=== PATIENT | male | born 1940 | race Caucasian/White ===

== ENCOUNTER 2024-01-22 10:56 | Emergency (ER) | payer MEDICARE | END 2024-01-22 14:00 | disposition home or self-care (01) | LOC: FB.ED 10:56 | DX: S01.01XA Laceration without foreign body of scalp, initial encounter (principal); I10 Essential (primary) hypertension; W01.0XXA Fall on same level from slipping, tripping and stumbling without subsequent striking against object, initial encounter | CPT/HCPCS: 12001; 70450; 99284 ==

== ENCOUNTER 2024-02-07 11:48 | Inpatient (IN) | payer MEDICARE, OTHER ==
[2024-02-07] MEDS ORDERED: Carbamide Peroxide 6.5% Otic Soln 15 ML Bottle EARBOTH PRN (12:30)
[2024-02-07] MEDS ORDERED: Loperamide 2 MG Cap PO PRN (12:30)
[2024-02-07] MEDS ORDERED: Bisacodyl 10 MG Supp RECTAL PRN (12:30)
[2024-02-07] MEDS ORDERED: Magnesium Hydroxide 400 MG/5 ML Susp 30 ML Cup PO PRN (12:30)
[2024-02-07] MEDS ORDERED: guaiFENesin 100 MG/5 ML Soln 5 ML UD Cup PO PRN (12:30)
[2024-02-07] MEDS ORDERED: Aluminum Hydroxide/Magnesium Hydroxide Susp 30 ML Cup PO PRN (12:58)
[2024-02-07] MEDS: Carbidopa/Levodopa 25-100 MG Tab PO SCH (13:37)
[2024-02-07] MEDS: Acetaminophen 325 MG Tab PO SCH (13:37)
[2024-02-07] MEDS: Enoxaparin 40 MG/0.4 ML Syringe SUBCUT SCH (13:42)
[2024-02-07] MEDS: traMADol 50 MG Tab PO PRN (18:41)
[2024-02-07] MEDS: Fluticasone NASAL Spray 16 GM Bottle NASBOTH SCH (21:28)
[2024-02-07] MEDS: Polyethylene Glycol 3350 Powder 17 GM Packet PO SCH (21:29)
[2024-02-07] MEDS: Mirtazapine 15 MG Tab PO SCH (21:30)
[2024-02-07] MEDS: LIDOCAINE PATCH TRDERM SCH (21:32)
[2024-02-07] MEDS: Sennosides/Docusate Sodium 50-8.6 MG Tab PO SCH (21:36)
[2024-02-08 06:44] LABS: BASOPHILS PERCENT AUTO 0.2 % (0.3-3.8); EOSINOPHILS PERCENT AUTO 0.3 % (0.1-6.8); HEMATOCRIT 35.1 % (38.3-50.1); HEMOGLOBIN 11.5 g/dL (12.9-17.7); LYMPHOCYTES ABSOLUTE AUTO 2.5 x10-3/uL (0.5-4.5); LYMPHOCYTES PERCENT AUTO 27.6 % (15.8-45.3); MEAN CORPUSCULAR HEMOGLOBIN 31.4 pg (27.0-33.3); MEAN CORPUSCULAR HGB CONC 32.7 g/dL (28.7-35.3); MEAN CORPUSCULAR VOLUME 95.9 fL (80.8-98.7); MONOCYTES ABSOLUTE AUTO 1.1 x10-3/uL (0.0-1.2); MONOCYTES PERCENT AUTO 11.9 % (5.5-15.2); NEUTROPHILS ABSOLUTE AUTO 5.4 x10-3/uL (1.7-6.9); PLATELET COUNT,PLT 195 x10(3)uL (117-477); RED BLOOD CELL COUNT 3.66 x10(6)uL (3.90-5.90)
[2024-02-08 06:55] LABS: A/G RATIO 0.8; ALANINE AMINOTRANSFERASE,ALT 9 U/L (12-36); ALBUMIN 3.1 g/dL (3.2-4.6); ALKALINE PHOSPHATASE 92 IU/L (56-112); ASPARTATE AMNIOTRANSFERASE,AST 13 IU/L (5-25); BILIRUBIN TOTAL 0.4 mg/dL (0.1-1.3); BLOOD UREA NITROGEN,BUN 35 mg/dL (7-18); BUN/CREATININE RATIO 19.4 (9-20); CALCIUM 8.6 mg/dL (8.6-10.2); CARBON DIOXIDE,CO2 28 mmol/L (21-32); CHLORIDE,CL 110 mmol/L (100-110); CREATININE 1.8 mg/dL (0.70-1.30); EST CRCL DRUG DOSING (CG) 31.46 mL/min; ESTIMATED GFR 37 mL/min (>60); GLUCOSE RANDOM 99 mg/dL (80-116); POTASSIUM,K 5.6 mmol/L (3.5-5.3); PROTEIN TOTAL,TP 6.9 g/dL (6.0-8.0); SODIUM,NA 144 mmol/L (135-145)
[2024-02-08] MEDS: Aspirin 81 MG Tab.EC PO SCH (08:10)
[2024-02-08] MEDS: Rosuvastatin 20 MG Tab PO SCH (08:10)
[2024-02-08] MEDS: Folic Acid/Vitamin B Complex With C Cap PO SCH (08:10)
[2024-02-08] MEDS: Tamsulosin 0.4 MG Cap.ER PO SCH (08:10)
[2024-02-08] MEDS: Enoxaparin 40 MG/0.4 ML Syringe SUBCUT SCH (08:11)
[2024-02-08] MEDS: Metoprolol Succinate 25 MG Tab.ER PO SCH (08:12)
[2024-02-08] MEDS: Lidocaine 4% 1 each Patch TOP SCH (08:14)
[2024-02-08] MEDS ORDERED: Lisinopril 2.5 MG Tab PO SCH (09:00)
[2024-02-08] MEDS: Sodium Zirconium Cyclosilicate 10 GM Packet PO ONE (10:15)
[2024-02-09 06:21] LABS: BASOPHILS PERCENT AUTO 0.3 % (0.3-3.8); EOSINOPHILS PERCENT AUTO 0.4 % (0.1-6.8); HEMATOCRIT 35.2 % (38.3-50.1); HEMOGLOBIN 11.4 g/dL (12.9-17.7); LYMPHOCYTES ABSOLUTE AUTO 2.2 x10-3/uL (0.5-4.5); LYMPHOCYTES PERCENT AUTO 23.8 % (15.8-45.3); MEAN CORPUSCULAR HGB CONC 32.4 g/dL (28.7-35.3); MEAN CORPUSCULAR VOLUME 95.7 fL (80.8-98.7); MEAN PLATELET VOLUME 8.6 fL (6.7-11.0); MONOCYTES ABSOLUTE AUTO 1.1 x10-3/uL (0.0-1.2); MONOCYTES PERCENT AUTO 11.9 % (5.5-15.2); NEUTROPHILS ABSOLUTE AUTO 5.9 x10-3/uL (1.7-6.9); NEUTROPHILS PERCENT AUTO 63.6 % (40.3-71.8); PLATELET COUNT,PLT 188 x10(3)uL (117-477); RED BLOOD CELL COUNT 3.67 x10(6)uL (3.90-5.90); RED CELL DISTRIBUTION WIDTH 14.8 % (12.4-15.0); WHITE BLOOD CELL COUNT,WBC 9.2 x10-3/uL (3.2-10.1)
[2024-02-09 06:29] LABS: BLOOD UREA NITROGEN,BUN 37 mg/dL (7-18); BUN/CREATININE RATIO 21.8 (9-20); CALCIUM 8.6 mg/dL (8.6-10.2); CARBON DIOXIDE,CO2 26 mmol/L (21-32); CHLORIDE,CL 109 mmol/L (100-110); CREATININE 1.7 mg/dL (0.70-1.30); EST CRCL DRUG DOSING (CG) 33.17 mL/min; ESTIMATED GFR 40 mL/min (>60); GLUCOSE RANDOM 102 mg/dL (80-116); POTASSIUM,K 5.4 mmol/L (3.5-5.3); SODIUM,NA 142 mmol/L (135-145)
[2024-02-09] MEDS: Sodium Zirconium Cyclosilicate 10 GM Packet PO ONE (09:29)
[2024-02-09] MEDS: Naproxen 500 MG Tab PO SCH (09:29)
[2024-02-09] MEDS: Iopamidol 755 Mg/ML 100 ML Bottle IV SCH (13:58)
[2024-02-10] MEDS: Acetaminophen 325 MG Tab PO PRN (02:21)
[2024-02-10 07:03] LABS: BLOOD UREA NITROGEN,BUN 38 mg/dL (7-18); BUN/CREATININE RATIO 23.8 (9-20); CALCIUM 8.8 mg/dL (8.6-10.2); CARBON DIOXIDE,CO2 25 mmol/L (21-32); CHLORIDE,CL 108 mmol/L (100-110); CREATININE 1.6 mg/dL (0.70-1.30); ESTIMATED GFR 43 mL/min (>60); GLUCOSE RANDOM 109 mg/dL (80-116); POTASSIUM,K 4.8 mmol/L (3.5-5.3); SODIUM,NA 141 mmol/L (135-145)
[2024-02-10] MEDS: Folic Acid/Vit B Complix And C 1 Tablet PO SCH (08:33)
[2024-02-10] MEDS: Haloperidol Lactate 5 MG/ML SDV IM PRN (14:17)
[2024-02-10] MEDS: OLANZapine 10 MG Vial IM ONE (16:49)
== END 2024-02-11 09:10 | DRG 534 ==
LOC: FB.MS 12:00
PROVIDERS: ADMIT Family Medicine; ATTEND Family Medicine
DX: S72.302A Unspecified fracture of shaft of left femur, initial encounter for closed fracture (principal); M97.02XA Periprosthetic fracture around internal prosthetic left hip joint, initial encounter; F05 Delirium due to known physiological condition; F33.1 Major depressive disorder, recurrent, moderate; I13.0 Hypertensive heart and chronic kidney disease with heart failure and stage 1 through stage 4 chronic kidney disease, or unspecified chronic kidney disease; I50.42 Chronic combined systolic (congestive) and diastolic (congestive) heart failure; N18.31 Chronic kidney disease, stage 3a; E87.5 Hyperkalemia; G20.A2 Parkinson's disease without dyskinesia, with fluctuations; D63.1 Anemia in chronic kidney disease; N28.89 Other specified disorders of kidney and ureter; S32.591G Other specified fracture of right pubis, subsequent encounter for fracture with delayed healing; N40.0 Benign prostatic hyperplasia without lower urinary tract symptoms; H54.7 Unspecified visual loss; I25.10 Atherosclerotic heart disease of native coronary artery without angina pectoris; E78.5 Hyperlipidemia, unspecified; N40.1 Benign prostatic hyperplasia with lower urinary tract symptoms; G31.84 Mild cognitive impairment of uncertain or unknown etiology; R29.6 Repeated falls; W01.0XXA Fall on same level from slipping, tripping and stumbling without subsequent striking against object, initial encounter; Z88.0 Allergy status to penicillin; Z88.1 Allergy status to other antibiotic agents; Z91.018 Allergy to other foods; Z79.82 Long term (current) use of aspirin; Z79.899 Other long term (current) drug therapy; I25.2 Old myocardial infarction; Z87.891 Personal history of nicotine dependence
CPT/HCPCS: 36415; 74178; 80048; 80053; 83880; 85025; 93005; 93010; 97161-GP; 99222; 99232; 99233; 99239; A9270-GY; J1630; J1650; Q9967; U0002

== ENCOUNTER 2024-11-29 08:25 | Emergency (ER) | payer MEDICARE, MEDICAID ==
[2024-11-29] MEDS ORDERED: Sodium Chloride 0.9% 10 ML Syringe FLUSH PRN (08:45)
[2024-11-29 09:17] LABS: BASOPHILS PERCENT AUTO 0.4 % (0.3-3.8); EOSINOPHILS PERCENT AUTO 0.2 % (0.1-6.8); HEMATOCRIT 36.2 % (38.3-50.1); HEMOGLOBIN 12.3 g/dL (12.9-17.7); LYMPHOCYTES ABSOLUTE AUTO 0.7 x10-3/uL (0.5-4.5); MEAN CORPUSCULAR HEMOGLOBIN 31.6 pg (27.0-33.3); MEAN CORPUSCULAR HGB CONC 33.9 g/dL (28.7-35.3); MEAN CORPUSCULAR VOLUME 93.1 fL (80.8-98.7); MEAN PLATELET VOLUME 9.2 fL (6.7-11.0); MONOCYTES ABSOLUTE AUTO 0.9 x10-3/uL (0.0-1.2); MONOCYTES PERCENT AUTO 9.2 % (5.5-15.2); NEUTROPHILS ABSOLUTE AUTO 8.1 x10-3/uL (1.7-6.9); NEUTROPHILS PERCENT AUTO 83.2 % (40.3-71.8); PLATELET COUNT,PLT 178 x10(3)uL (117-477); RED BLOOD CELL COUNT 3.89 x10(6)uL (3.90-5.90); WHITE BLOOD CELL COUNT,WBC 9.7 x10-3/uL (3.2-10.1)
[2024-11-29 09:29] LABS: BASE EXCESS VENOUS,POC -5 mmol/L (-2 - 3+); PCO2 VENOUS,POC 32 mmHg (41-51); PH VENOUS,POC 7.39 pH Units (7.32-7.43)
[2024-11-29 09:32] LABS: A/G RATIO 0.9; ALANINE AMINOTRANSFERASE,ALT 9 U/L (12-36); ALBUMIN 3.4 g/dL (3.2-4.6); ALKALINE PHOSPHATASE 69 IU/L (56-112); ASPARTATE AMNIOTRANSFERASE,AST 20 IU/L (5-25); BILIRUBIN TOTAL 0.8 mg/dL (0.1-1.3); BLOOD UREA NITROGEN,BUN 51 mg/dL (7-18); BUN/CREATININE RATIO 20.4 (9-20); CALCIUM 8.6 mg/dL (8.6-10.2); CARBON DIOXIDE,CO2 23 mmol/L (21-32); CHLORIDE,CL 107 mmol/L (100-110); ESTIMATED GFR 25 mL/min (>60); GLUCOSE RANDOM 134 mg/dL (80-116); POTASSIUM,K 4.6 mmol/L (3.5-5.3); PROTEIN TOTAL,TP 7.3 g/dL (6.0-8.0); SODIUM,NA 141 mmol/L (135-145)
[2024-11-29 09:36] LABS: LACTIC ACID 0.9 mmol/L (0.4-2.0)
[2024-11-29 09:37] LABS: CREATININE 2.5 mg/dL (0.70-1.30)
[2024-11-29 09:56] LABS: TROPONIN I 62.6 pg/mL (4.0-60.3)
[2024-11-29 10:53] LABS: PROTHROMBIN TIME 10.4 sec (9.0-11.1)
[2024-11-29 11:20] LABS: D-DIMER QUANTITATIVE 1.97 mg/LFEU (0.0-0.59)
[2024-11-29 12:20] LABS: APPEARANCE,URINE CLEAR (CLEAR); BILIRUBIN,URINE NEGATIVE (NEGATIVE); COLOR,URINE YELLOW (YELLOW); GLUCOSE,URINE NORMAL (NORMAL); KETONES,URINE NEGATIVE (NEGATIVE); LEUKOCYTE ESTERASE,URINE NEGATIVE (NEGATIVE); NITRITE,URINE NEGATIVE (NEGATIVE); OCCULT BLOOD,URINE NEGATIVE (NEGATIVE); PROTEIN,URINE NEGATIVE (NEGATIVE); UROBILINOGEN,URINE NORMAL (NEGATIVE)
[2024-11-29] MEDS ORDERED: Sodium Chloride 0.9% 1,000 ML IV SCH (13:15)
[2024-11-29] MEDS ORDERED: Sodium Chloride 0.9% 500 ML IV SCH (13:48)
== END 2024-11-29 14:10 ==
LOC: FB.ED 08:25
DX: J06.9 Acute upper respiratory infection, unspecified (principal); N17.9 Acute kidney failure, unspecified; E86.0 Dehydration; I12.9 Hypertensive chronic kidney disease with stage 1 through stage 4 chronic kidney disease, or unspecified chronic kidney disease; I25.10 Atherosclerotic heart disease of native coronary artery without angina pectoris; N18.9 Chronic kidney disease, unspecified; Z88.0 Allergy status to penicillin; Z88.8 Allergy status to other drugs, medicaments and biological substances; Z88.1 Allergy status to other antibiotic agents; Z79.82 Long term (current) use of aspirin; Z79.899 Other long term (current) drug therapy; Z79.51 Long term (current) use of inhaled steroids
CPT/HCPCS: 36415; 71045; 80053; 81003; 83605; 83880; 84484; 85025; 85379; 85610; 85730; 87040; 93005; 99285

== ENCOUNTER 2025-05-31 12:46 | Emergency (ER) | payer MEDICARE, MEDICAID ==
[2025-05-31 13:23] LABS: BASOPHILS ABSOLUTE AUTO 0.0 x10-3/uL (0.0-0.3); BASOPHILS PERCENT AUTO 0.5 % (0.3-3.8); EOSINOPHILS ABSOLUTE AUTO 0.0 x10-3/uL (0.0-0.6); EOSINOPHILS PERCENT AUTO 0.2 % (0.1-6.8); LYMPHOCYTES ABSOLUTE AUTO 1.1 x10-3/uL (0.5-4.5); LYMPHOCYTES PERCENT AUTO 12.2 % (15.8-45.3); MEAN PLATELET VOLUME 8.9 fL (6.7-11.0); MONOCYTES ABSOLUTE AUTO 1.4 x10-3/uL (0.0-1.2); MONOCYTES PERCENT AUTO 14.6 % (5.5-15.2); NEUTROPHILS ABSOLUTE AUTO 6.8 x10-3/uL (1.7-6.9); NEUTROPHILS PERCENT AUTO 72.5 % (40.3-71.8); PLATELET COUNT,PLT 167 x10(3)uL (117-477); RED BLOOD CELL COUNT 4.47 x10(6)uL (3.90-5.90); RED CELL DISTRIBUTION WIDTH 13.8 % (12.4-15.0); WHITE BLOOD CELL COUNT,WBC 9.3 x10-3/uL (3.2-10.1)
[2025-05-31 13:25] LABS: BLOOD UREA NITROGEN,BUN 34 mg/dL (7-18); CARBON DIOXIDE,CO2 24 mmol/L (21-32); CHLORIDE,CL 107 mmol/L (100-110); CREATININE 1.8 mg/dL (0.70-1.30); ESTIMATED GFR 37 mL/min (>60); GLUCOSE RANDOM 127 mg/dL (80-116); POTASSIUM,K 4.6 mmol/L (3.5-5.3); SODIUM,NA 141 mmol/L (135-145)
== END 2025-05-31 15:31 | disposition home or self-care (01) ==
LOC: FB.ED 12:46
DX: R50.83 Postvaccination fever (principal); I13.0 Hypertensive heart and chronic kidney disease with heart failure and stage 1 through stage 4 chronic kidney disease, or unspecified chronic kidney disease; I50.9 Heart failure, unspecified; N18.9 Chronic kidney disease, unspecified; I25.10 Atherosclerotic heart disease of native coronary artery without angina pectoris; E78.00 Pure hypercholesterolemia, unspecified; Z88.0 Allergy status to penicillin; Z88.8 Allergy status to other drugs, medicaments and biological substances; Z91.018 Allergy to other foods; Z79.82 Long term (current) use of aspirin; Z79.899 Other long term (current) drug therapy
CPT/HCPCS: 36415; 80048; 85025; 99284; A9270; 99283

== ENCOUNTER 2025-06-10 12:23 | Inpatient (IN) | payer MEDICARE, MEDICAID ==
[2025-06-10 13:58] LABS: MEAN PLATELET VOLUME 9.0 fL (6.7-11.0); PLATELET COUNT,PLT 197 x10(3)uL (117-477); RED BLOOD CELL COUNT 4.12 x10(6)uL (3.90-5.90); RED CELL DISTRIBUTION WIDTH 13.9 % (12.4-15.0); WHITE BLOOD CELL COUNT,WBC 16.2 x10-3/uL (3.2-10.1)
[2025-06-10 14:02] LABS: A/G RATIO 0.8; ALANINE AMINOTRANSFERASE,ALT 7 U/L (12-36); ASPARTATE AMNIOTRANSFERASE,AST 15 IU/L (5-25); BILIRUBIN TOTAL 0.8 mg/dL (0.1-1.3); BLOOD UREA NITROGEN,BUN 34 mg/dL (7-18); CARBON DIOXIDE,CO2 23 mmol/L (21-32); CHLORIDE,CL 110 mmol/L (100-110); CREATININE 1.9 mg/dL (0.70-1.30); EST CRCL DRUG DOSING (CG) 26.58 mL/min; ESTIMATED GFR 35 mL/min (>60); GLUCOSE RANDOM 147 mg/dL (80-116); POTASSIUM,K 4.3 mmol/L (3.5-5.3); PROTEIN TOTAL,TP 7.8 g/dL (6.0-8.0); SODIUM,NA 145 mmol/L (135-145)
[2025-06-10 14:14] LABS: PRO B-TYPE NATRIUR PEPT,BNPPRO 1628.0 pg/mL (<=450)
[2025-06-10 14:21] LABS: LYMPHOCYTES PERCENT MAN 6 % (13-37); MONOCYTES PERCENT MAN 8 % (4-12); SEG NEUTROPHILS PERCENT MAN 86 % (46-82)
[2025-06-10 14:47] LABS: INFLUENZA A NAA NEGATIVE (NEGATIVE); INFLUENZA B NAA NEGATIVE (NEGATIVE); RESPIRATORY SYNCYTIAL VIR NAA NEGATIVE (NEGATIVE)
[2025-06-10 14:48] LABS: CORONAVIRUS COVID-19 NAA NEGATIVE (NEGATIVE)
[2025-06-10] MEDS: Levofloxacin/Dextrose 5%-Water 750 MG in Premix Bag 1 BAG IV SCH (15:07)
[2025-06-10] MEDS ORDERED: Ondansetron 4 MG Tab.DIS PO PRN (16:51)
[2025-06-10] MEDS: Fluticasone NASAL Spray 16 GM Bottle NASBOTH SCH (21:00)
[2025-06-10] MEDS: Sennosides/Docusate Sodium 50-8.6 MG Tab PO SCH (21:01)
[2025-06-10] MEDS: methylPREDNISolone Sodium Succinate 40 MG/1 ML SDV IVPUSH ONE (22:42)
[2025-06-10 22:56] LABS: BASE EXCESS VENOUS,POC -4 mmol/L (-2 - 3+); PCO2 VENOUS,POC 36 mmHg (41-51); PH VENOUS,POC 7.37 pH Units (7.32-7.43)
[2025-06-11] MEDS: Albuterol 0.083% 2.5 MG/3 ML Neb Soln NEB SCH (06:01)
[2025-06-11 06:52] LABS: MEAN PLATELET VOLUME 8.9 fL (6.7-11.0); PLATELET COUNT,PLT 181 x10(3)uL (117-477); RED BLOOD CELL COUNT 3.73 x10(6)uL (3.90-5.90); RED CELL DISTRIBUTION WIDTH 14.4 % (12.4-15.0); WHITE BLOOD CELL COUNT,WBC 12.5 x10-3/uL (3.2-10.1)
[2025-06-11 07:01] LABS: A/G RATIO 0.7; ALANINE AMINOTRANSFERASE,ALT 7 U/L (12-36); ASPARTATE AMNIOTRANSFERASE,AST 16 IU/L (5-25); BILIRUBIN TOTAL 0.6 mg/dL (0.1-1.3); BLOOD UREA NITROGEN,BUN 30 mg/dL (7-18); CARBON DIOXIDE,CO2 20 mmol/L (21-32); CHLORIDE,CL 113 mmol/L (100-110); CREATININE 1.9 mg/dL (0.70-1.30); EST CRCL DRUG DOSING (CG) 26.58 mL/min; ESTIMATED GFR 35 mL/min (>60); GLUCOSE RANDOM 175 mg/dL (80-116); POTASSIUM,K 4.4 mmol/L (3.5-5.3); PROTEIN TOTAL,TP 7.0 g/dL (6.0-8.0); SODIUM,NA 145 mmol/L (135-145)
[2025-06-11 07:07] LABS: LYMPHOCYTES PERCENT MAN 8 % (13-37); MONOCYTES PERCENT MAN 2 % (4-12); SEG NEUTROPHILS PERCENT MAN 90 % (46-82)
[2025-06-11] MEDS: guaiFENesin 100 MG/5 ML Soln 5 ML UD Cup PO PRN (23:59)
[2025-06-12 06:24] LABS: BASOPHILS ABSOLUTE AUTO 0.0 x10-3/uL (0.0-0.3); BASOPHILS PERCENT AUTO 0.1 % (0.3-3.8); EOSINOPHILS ABSOLUTE AUTO 0.0 x10-3/uL (0.0-0.6); EOSINOPHILS PERCENT AUTO 0.1 % (0.1-6.8); LYMPHOCYTES ABSOLUTE AUTO 1.6 x10-3/uL (0.5-4.5); LYMPHOCYTES PERCENT AUTO 11.8 % (15.8-45.3); MEAN PLATELET VOLUME 8.5 fL (6.7-11.0); MONOCYTES ABSOLUTE AUTO 1.4 x10-3/uL (0.0-1.2); MONOCYTES PERCENT AUTO 10.4 % (5.5-15.2); NEUTROPHILS ABSOLUTE AUTO 10.2 x10-3/uL (1.7-6.9); NEUTROPHILS PERCENT AUTO 77.6 % (40.3-71.8); PLATELET COUNT,PLT 174 x10(3)uL (117-477); RED BLOOD CELL COUNT 3.53 x10(6)uL (3.90-5.90); RED CELL DISTRIBUTION WIDTH 14.2 % (12.4-15.0); WHITE BLOOD CELL COUNT,WBC 13.2 x10-3/uL (3.2-10.1)
[2025-06-12 06:40] LABS: A/G RATIO 0.7; ALANINE AMINOTRANSFERASE,ALT 13 U/L (12-36); ASPARTATE AMNIOTRANSFERASE,AST 22 IU/L (5-25); BILIRUBIN TOTAL 0.4 mg/dL (0.1-1.3); BLOOD UREA NITROGEN,BUN 39 mg/dL (7-18); CARBON DIOXIDE,CO2 21 mmol/L (21-32); CREATININE 1.8 mg/dL (0.70-1.30); EST CRCL DRUG DOSING (CG) 28.06 mL/min; ESTIMATED GFR 37 mL/min (>60); GLUCOSE RANDOM 119 mg/dL (80-116); POTASSIUM,K 4.2 mmol/L (3.5-5.3); PROTEIN TOTAL,TP 6.4 g/dL (6.0-8.0); SODIUM,NA 148 mmol/L (135-145)
[2025-06-12 06:55] LABS: CHLORIDE,CL 117 mmol/L (100-110)
[2025-06-13 06:41] LABS: BASOPHILS ABSOLUTE AUTO 0.1 x10-3/uL (0.0-0.3); BASOPHILS PERCENT AUTO 0.5 % (0.3-3.8); EOSINOPHILS ABSOLUTE AUTO 0.1 x10-3/uL (0.0-0.6); EOSINOPHILS PERCENT AUTO 0.7 % (0.1-6.8); LYMPHOCYTES ABSOLUTE AUTO 1.8 x10-3/uL (0.5-4.5); LYMPHOCYTES PERCENT AUTO 17.5 % (15.8-45.3); MEAN PLATELET VOLUME 9.1 fL (6.7-11.0); MONOCYTES ABSOLUTE AUTO 1.2 x10-3/uL (0.0-1.2); MONOCYTES PERCENT AUTO 12.1 % (5.5-15.2); NEUTROPHILS ABSOLUTE AUTO 7.0 x10-3/uL (1.7-6.9); NEUTROPHILS PERCENT AUTO 69.2 % (40.3-71.8); PLATELET COUNT,PLT 180 x10(3)uL (117-477); RED BLOOD CELL COUNT 3.64 x10(6)uL (3.90-5.90); RED CELL DISTRIBUTION WIDTH 14.2 % (12.4-15.0); WHITE BLOOD CELL COUNT,WBC 10.1 x10-3/uL (3.2-10.1)
[2025-06-13 07:13] LABS: A/G RATIO 0.7; ALANINE AMINOTRANSFERASE,ALT 12 U/L (12-36); ASPARTATE AMNIOTRANSFERASE,AST 20 IU/L (5-25); BILIRUBIN TOTAL 0.6 mg/dL (0.1-1.3); BLOOD UREA NITROGEN,BUN 32 mg/dL (7-18); CARBON DIOXIDE,CO2 20 mmol/L (21-32); CHLORIDE,CL 112 mmol/L (100-110); CREATININE 1.5 mg/dL (0.70-1.30); EST CRCL DRUG DOSING (CG) 33.67 mL/min; ESTIMATED GFR 46 mL/min (>60); GLUCOSE RANDOM 117 mg/dL (80-116); POTASSIUM,K 3.9 mmol/L (3.5-5.3); PROTEIN TOTAL,TP 6.9 g/dL (6.0-8.0); SODIUM,NA 144 mmol/L (135-145)
[2025-06-14 06:27] LABS: BASOPHILS ABSOLUTE AUTO 0.0 x10-3/uL (0.0-0.3); BASOPHILS PERCENT AUTO 0.5 % (0.3-3.8); EOSINOPHILS ABSOLUTE AUTO 0.1 x10-3/uL (0.0-0.6); EOSINOPHILS PERCENT AUTO 0.9 % (0.1-6.8); LYMPHOCYTES ABSOLUTE AUTO 1.8 x10-3/uL (0.5-4.5); LYMPHOCYTES PERCENT AUTO 18.3 % (15.8-45.3); MEAN PLATELET VOLUME 9.2 fL (6.7-11.0); MONOCYTES ABSOLUTE AUTO 1.2 x10-3/uL (0.0-1.2); MONOCYTES PERCENT AUTO 12.5 % (5.5-15.2); NEUTROPHILS ABSOLUTE AUTO 6.6 x10-3/uL (1.7-6.9); NEUTROPHILS PERCENT AUTO 67.8 % (40.3-71.8); PLATELET COUNT,PLT 193 x10(3)uL (117-477); RED BLOOD CELL COUNT 3.84 x10(6)uL (3.90-5.90); RED CELL DISTRIBUTION WIDTH 14.3 % (12.4-15.0); WHITE BLOOD CELL COUNT,WBC 9.8 x10-3/uL (3.2-10.1)
[2025-06-14 06:37] LABS: A/G RATIO 0.7; ALANINE AMINOTRANSFERASE,ALT 7 U/L (12-36); ASPARTATE AMNIOTRANSFERASE,AST 17 IU/L (5-25); BILIRUBIN TOTAL 0.7 mg/dL (0.1-1.3); BLOOD UREA NITROGEN,BUN 28 mg/dL (7-18); CARBON DIOXIDE,CO2 21 mmol/L (21-32); CHLORIDE,CL 111 mmol/L (100-110); CREATININE 1.5 mg/dL (0.70-1.30); EST CRCL DRUG DOSING (CG) 33.67 mL/min; ESTIMATED GFR 46 mL/min (>60); GLUCOSE RANDOM 111 mg/dL (80-116); POTASSIUM,K 4.2 mmol/L (3.5-5.3); PROTEIN TOTAL,TP 7.2 g/dL (6.0-8.0); SODIUM,NA 145 mmol/L (135-145)
[2025-06-14] MEDS: Saccharomyces Boulardii (Probiotic) 250 MG Cap PO SCH (10:53)
[2025-06-14] MEDS: VANCOmycin 1.75 GM/350 ML 1.75 GM in Premix Bag 1 BAG IV ONE (11:12)
[2025-06-14 21:50] LABS: BASOPHILS ABSOLUTE AUTO 0.1 x10-3/uL (0.0-0.3); BASOPHILS PERCENT AUTO 0.6 % (0.3-3.8); EOSINOPHILS ABSOLUTE AUTO 0.1 x10-3/uL (0.0-0.6); EOSINOPHILS PERCENT AUTO 1.2 % (0.1-6.8); LYMPHOCYTES ABSOLUTE AUTO 2.1 x10-3/uL (0.5-4.5); LYMPHOCYTES PERCENT AUTO 19.6 % (15.8-45.3); MEAN PLATELET VOLUME 9.1 fL (6.7-11.0); MONOCYTES ABSOLUTE AUTO 1.4 x10-3/uL (0.0-1.2); MONOCYTES PERCENT AUTO 13.3 % (5.5-15.2); NEUTROPHILS ABSOLUTE AUTO 7.0 x10-3/uL (1.7-6.9); NEUTROPHILS PERCENT AUTO 65.3 % (40.3-71.8); PLATELET COUNT,PLT 205 x10(3)uL (117-477); RED BLOOD CELL COUNT 4.03 x10(6)uL (3.90-5.90); RED CELL DISTRIBUTION WIDTH 14.3 % (12.4-15.0); WHITE BLOOD CELL COUNT,WBC 10.7 x10-3/uL (3.2-10.1)
[2025-06-14 21:57] LABS: BLOOD UREA NITROGEN,BUN 34 mg/dL (7-18); CARBON DIOXIDE,CO2 22 mmol/L (21-32); CHLORIDE,CL 112 mmol/L (100-110); CREATININE 1.7 mg/dL (0.70-1.30); EST CRCL DRUG DOSING (CG) 29.71 mL/min; ESTIMATED GFR 40 mL/min (>60); GLUCOSE RANDOM 115 mg/dL (80-116); POTASSIUM,K 3.8 mmol/L (3.5-5.3); SODIUM,NA 146 mmol/L (135-145)
[2025-06-14 22:03] LABS: A/G RATIO 0.6; ASPARTATE AMNIOTRANSFERASE,AST 17 IU/L (5-25); BILIRUBIN TOTAL 0.4 mg/dL (0.1-1.3); PROTEIN TOTAL,TP 7.4 g/dL (6.0-8.0)
[2025-06-14 22:08] LABS: ALANINE AMINOTRANSFERASE,ALT < 6 U/L (12-36)
[2025-06-14 22:19] LABS: BASE EXCESS VENOUS,POC -4 mmol/L (-2 - 3+); PCO2 VENOUS,POC 35 mmHg (41-51); PH VENOUS,POC 7.37 pH Units (7.32-7.43)
[2025-06-15] MEDS: Sodium Chloride 0.9% 10 ML Syringe FLUSH PRN (02:18)
[2025-06-15 07:09] LABS: MEAN PLATELET VOLUME 9.4 fL (6.7-11.0); PLATELET COUNT,PLT 195 x10(3)uL (117-477); RED BLOOD CELL COUNT 3.76 x10(6)uL (3.90-5.90); RED CELL DISTRIBUTION WIDTH 14.6 % (12.4-15.0); WHITE BLOOD CELL COUNT,WBC 10.0 x10-3/uL (3.2-10.1)
[2025-06-15 07:22] LABS: A/G RATIO 0.6; ALANINE AMINOTRANSFERASE,ALT 13 U/L (12-36); ASPARTATE AMNIOTRANSFERASE,AST 17 IU/L (5-25); BILIRUBIN TOTAL 0.4 mg/dL (0.1-1.3); BLOOD UREA NITROGEN,BUN 32 mg/dL (7-18); CARBON DIOXIDE,CO2 22 mmol/L (21-32); CHLORIDE,CL 114 mmol/L (100-110); CREATININE 1.7 mg/dL (0.70-1.30); EST CRCL DRUG DOSING (CG) 29.71 mL/min; ESTIMATED GFR 40 mL/min (>60); GLUCOSE RANDOM 129 mg/dL (80-116); POTASSIUM,K 4.1 mmol/L (3.5-5.3); PROTEIN TOTAL,TP 6.9 g/dL (6.0-8.0); SODIUM,NA 145 mmol/L (135-145)
[2025-06-15 07:39] LABS: EOSINOPHILS PERCENT MAN 1 % (0-5); LYMPHOCYTES PERCENT MAN 15 % (13-37); MONOCYTES PERCENT MAN 12 % (4-12); SEG NEUTROPHILS PERCENT MAN 72 % (46-82)
[2025-06-15] MEDS: VANCOmycin 1.25 GM/250 ML 1.25 GM in Premix Bag 1 BAG IV ONE (10:10)
[2025-06-15] MEDS: Iopamidol 755 Mg/ML 100 ML Bottle IV SCH (11:59)
[2025-06-15] MEDS: metroNIDAZOLE/Normal Saline 500 MG in Premix Bag 1 BAG IV SCH (16:17)
[2025-06-16 06:50] LABS: MEAN PLATELET VOLUME 9.7 fL (6.7-11.0); PLATELET COUNT,PLT 211 x10(3)uL (117-477); RED BLOOD CELL COUNT 3.49 x10(6)uL (3.90-5.90); RED CELL DISTRIBUTION WIDTH 14.6 % (12.4-15.0); WHITE BLOOD CELL COUNT,WBC 10.5 x10-3/uL (3.2-10.1)
[2025-06-16 07:03] LABS: A/G RATIO 0.6; ALANINE AMINOTRANSFERASE,ALT 8 U/L (12-36); ASPARTATE AMNIOTRANSFERASE,AST 16 IU/L (5-25); BILIRUBIN TOTAL 0.4 mg/dL (0.1-1.3); BLOOD UREA NITROGEN,BUN 29 mg/dL (7-18); CARBON DIOXIDE,CO2 19 mmol/L (21-32); CHLORIDE,CL 112 mmol/L (100-110); CREATININE 1.6 mg/dL (0.70-1.30); EST CRCL DRUG DOSING (CG) 31.57 mL/min; ESTIMATED GFR 42 mL/min (>60); GLUCOSE RANDOM 136 mg/dL (80-116); POTASSIUM,K 3.9 mmol/L (3.5-5.3); PROTEIN TOTAL,TP 6.7 g/dL (6.0-8.0); SODIUM,NA 143 mmol/L (135-145)
[2025-06-16 07:08] LABS: BAND PERCENT MAN 1 % (0-6); EOSINOPHILS PERCENT MAN 2 % (0-5); LYMPHOCYTES PERCENT MAN 16 % (13-37); MONOCYTES PERCENT MAN 10 % (4-12); SEG NEUTROPHILS PERCENT MAN 71 % (46-82)
[2025-06-16] MEDS: VANCOmycin 1 GM/200 ML 1 GM in Premix Bag 1 BAG IV SCH (10:12)
[2025-06-16 18:35] LABS: MRSA DETECTION BY PCR Not Detected
[2025-06-17 06:46] LABS: BASOPHILS ABSOLUTE AUTO 0.1 x10-3/uL (0.0-0.3); BASOPHILS PERCENT AUTO 0.6 % (0.3-3.8); EOSINOPHILS ABSOLUTE AUTO 0.3 x10-3/uL (0.0-0.6); EOSINOPHILS PERCENT AUTO 3.3 % (0.1-6.8); LYMPHOCYTES ABSOLUTE AUTO 1.7 x10-3/uL (0.5-4.5); LYMPHOCYTES PERCENT AUTO 17.0 % (15.8-45.3); MEAN PLATELET VOLUME 9.7 fL (6.7-11.0); MONOCYTES ABSOLUTE AUTO 1.2 x10-3/uL (0.0-1.2); MONOCYTES PERCENT AUTO 11.6 % (5.5-15.2); NEUTROPHILS ABSOLUTE AUTO 6.8 x10-3/uL (1.7-6.9); NEUTROPHILS PERCENT AUTO 67.5 % (40.3-71.8); PLATELET COUNT,PLT 245 x10(3)uL (117-477); RED BLOOD CELL COUNT 3.94 x10(6)uL (3.90-5.90); RED CELL DISTRIBUTION WIDTH 14.4 % (12.4-15.0); WHITE BLOOD CELL COUNT,WBC 10.1 x10-3/uL (3.2-10.1)
[2025-06-17 06:52] LABS: BLOOD UREA NITROGEN,BUN 26 mg/dL (7-18); CARBON DIOXIDE,CO2 22 mmol/L (21-32); CHLORIDE,CL 111 mmol/L (100-110); CREATININE 1.5 mg/dL (0.70-1.30); EST CRCL DRUG DOSING (CG) 33.67 mL/min; ESTIMATED GFR 46 mL/min (>60); GLUCOSE RANDOM 119 mg/dL (80-116); POTASSIUM,K 4.3 mmol/L (3.5-5.3); SODIUM,NA 144 mmol/L (135-145)
[2025-06-18 06:56] LABS: BLOOD UREA NITROGEN,BUN 28 mg/dL (7-18); CARBON DIOXIDE,CO2 19 mmol/L (21-32); CHLORIDE,CL 112 mmol/L (100-110); CREATININE 1.5 mg/dL (0.70-1.30); EST CRCL DRUG DOSING (CG) 33.67 mL/min; ESTIMATED GFR 46 mL/min (>60); GLUCOSE RANDOM 119 mg/dL (80-116); POTASSIUM,K 3.8 mmol/L (3.5-5.3); SODIUM,NA 143 mmol/L (135-145)
[2025-06-18 06:58] LABS: MEAN PLATELET VOLUME 9.5 fL (6.7-11.0); PLATELET COUNT,PLT 251 x10(3)uL (117-477); RED BLOOD CELL COUNT 3.76 x10(6)uL (3.90-5.90); RED CELL DISTRIBUTION WIDTH 14.5 % (12.4-15.0); WHITE BLOOD CELL COUNT,WBC 8.6 x10-3/uL (3.2-10.1)
[2025-06-18 07:23] LABS: EOSINOPHILS PERCENT MAN 2 % (0-5); LYMPHOCYTES PERCENT MAN 19 % (13-37); MONOCYTES PERCENT MAN 9 % (4-12); SEG NEUTROPHILS PERCENT MAN 70 % (46-82)
[2025-06-19 06:51] LABS: MEAN PLATELET VOLUME 9.3 fL (6.7-11.0); PLATELET COUNT,PLT 267 x10(3)uL (117-477); RED BLOOD CELL COUNT 4.13 x10(6)uL (3.90-5.90); RED CELL DISTRIBUTION WIDTH 14.6 % (12.4-15.0); WHITE BLOOD CELL COUNT,WBC 8.2 x10-3/uL (3.2-10.1)
[2025-06-19 06:58] LABS: BLOOD UREA NITROGEN,BUN 28 mg/dL (7-18); CARBON DIOXIDE,CO2 17 mmol/L (21-32); CHLORIDE,CL 114 mmol/L (100-110); CREATININE 1.6 mg/dL (0.70-1.30); EST CRCL DRUG DOSING (CG) 31.57 mL/min; ESTIMATED GFR 42 mL/min (>60); GLUCOSE RANDOM 116 mg/dL (80-116); POTASSIUM,K 3.9 mmol/L (3.5-5.3); SODIUM,NA 145 mmol/L (135-145)
[2025-06-19 07:20] LABS: EOSINOPHILS PERCENT MAN 2 % (0-5); LYMPHOCYTES PERCENT MAN 20 % (13-37); MONOCYTES PERCENT MAN 10 % (4-12); SEG NEUTROPHILS PERCENT MAN 68 % (46-82)
[2025-06-19 22:08] LABS: AMMONIA, PLASMA <9
== END 2025-06-19 19:02 | DRG 871 ==
LOC: FB.ED 12:23 → FB.MS 15:02
PROVIDERS: ADMIT Family Medicine; ATTEND Internal Medicine
DX: A41.9 Sepsis, unspecified organism (principal); N18.9 Chronic kidney disease, unspecified; R06.2 Wheezing; J22 Unspecified acute lower respiratory infection; R74.02 Elevation of levels of lactic acid dehydrogenase [LDH]; R79.89 Other specified abnormal findings of blood chemistry; D72.829 Elevated white blood cell count, unspecified; Z87.891 Personal history of nicotine dependence; R50.9 Fever, unspecified; I50.9 Heart failure, unspecified; J18.9 Pneumonia, unspecified organism; J96.01 Acute respiratory failure with hypoxia; N17.9 Acute kidney failure, unspecified; I50.42 Chronic combined systolic (congestive) and diastolic (congestive) heart failure; F05 Delirium due to known physiological condition; E87.20 Acidosis, unspecified; I13.0 Hypertensive heart and chronic kidney disease with heart failure and stage 1 through stage 4 chronic kidney disease, or unspecified chronic kidney disease; R65.20 Severe sepsis without septic shock; I25.10 Atherosclerotic heart disease of native coronary artery without angina pectoris; E86.0 Dehydration; R94.31 Abnormal electrocardiogram [ECG] [EKG]; L98.499 Non-pressure chronic ulcer of skin of other sites with unspecified severity; N18.31 Chronic kidney disease, stage 3a; G20.A2 Parkinson's disease without dyskinesia, with fluctuations; M25.552 Pain in left hip; M25.551 Pain in right hip; F32.A Depression, unspecified; Z96.643 Presence of artificial hip joint, bilateral; N40.0 Benign prostatic hyperplasia without lower urinary tract symptoms; D63.1 Anemia in chronic kidney disease; H54.7 Unspecified visual loss; E78.00 Pure hypercholesterolemia, unspecified; Z79.899 Other long term (current) drug therapy; Z88.8 Allergy status to other drugs, medicaments and biological substances; Z88.0 Allergy status to penicillin; Z88.1 Allergy status to other antibiotic agents; Z91.81 History of falling; Z79.82 Long term (current) use of aspirin; Z95.1 Presence of aortocoronary bypass graft
CPT/HCPCS: 36415; 70450; 71045; 71250; 71250-26; 71275; 71275-26; 73521; 80048; 80053; 80202; 82140; 82947; 83605; 83735; 83880; 84484; 85025; 86140; 87040; 87486; 87581; 87633; 87637; 87641; 87798; 93005; 94640; 97161-GP; 97165-GO; 97530-GP; 99285; A9270-GY; J0692; J0696; J1650; J1836; J1956; J2270; J2919; J3375; J7030; Q9967

== ENCOUNTER 2025-06-28 10:10 | Inpatient (IN) | payer MEDICARE, MEDICAID ==
[2025-06-28 10:32] LABS: BASOPHILS ABSOLUTE AUTO 0.1 x10-3/uL (0.0-0.3); BASOPHILS PERCENT AUTO 1.0 % (0.3-3.8); EOSINOPHILS ABSOLUTE AUTO 0.2 x10-3/uL (0.0-0.6); EOSINOPHILS PERCENT AUTO 2.8 % (0.1-6.8); LYMPHOCYTES ABSOLUTE AUTO 1.6 x10-3/uL (0.5-4.5); LYMPHOCYTES PERCENT AUTO 20.7 % (15.8-45.3); MEAN PLATELET VOLUME 9.9 fL (6.7-11.0); MONOCYTES ABSOLUTE AUTO 1.1 x10-3/uL (0.0-1.2); MONOCYTES PERCENT AUTO 14.7 % (5.5-15.2); NEUTROPHILS ABSOLUTE AUTO 4.7 x10-3/uL (1.7-6.9); NEUTROPHILS PERCENT AUTO 60.8 % (40.3-71.8); PLATELET COUNT,PLT 257 x10(3)uL (117-477); RED BLOOD CELL COUNT 3.82 x10(6)uL (3.90-5.90); RED CELL DISTRIBUTION WIDTH 15.3 % (12.4-15.0); WHITE BLOOD CELL COUNT,WBC 7.8 x10-3/uL (3.2-10.1)
[2025-06-28 10:32] LABS: BASE EXCESS VENOUS,POC -4 mmol/L (-2 - 3+); PCO2 VENOUS,POC 38 mmHg (41-51); PH VENOUS,POC 7.36 pH Units (7.32-7.43)
[2025-06-28 10:34] LABS: BLOOD UREA NITROGEN,BUN 27 mg/dL (7-18); CARBON DIOXIDE,CO2 26 mmol/L (21-32); CHLORIDE,CL 110 mmol/L (100-110); CREATININE 1.5 mg/dL (0.70-1.30); ESTIMATED GFR 46 mL/min (>60); GLUCOSE RANDOM 130 mg/dL (80-116); POTASSIUM,K 4.5 mmol/L (3.5-5.3); SODIUM,NA 144 mmol/L (135-145)
[2025-06-28 10:40] LABS: A/G RATIO 0.8; ALANINE AMINOTRANSFERASE,ALT 9 U/L (12-36); ASPARTATE AMNIOTRANSFERASE,AST 12 IU/L (5-25); BILIRUBIN TOTAL 0.5 mg/dL (0.1-1.3); PROTEIN TOTAL,TP 6.6 g/dL (6.0-8.0)
[2025-06-28 10:44] LABS: LACTIC ACID 1.1 mmol/L (0.4-2.0)
[2025-06-28 10:46] LABS: PRO B-TYPE NATRIUR PEPT,BNPPRO 402 pg/mL (<=450)
[2025-06-28] MEDS ORDERED: Albuterol 0.083% 2.5 MG/3 ML Neb Soln NEB PRN (12:01)
[2025-06-28] MEDS ORDERED: Non-Formulary Medication 1 Each (Carboxymethylcellulose Sodium [Artificial Tears] 15 ML Dr EYEBOTH PRN (12:01)
[2025-06-28] MEDS ORDERED: Ondansetron 4 MG Tab.DIS PO PRN (12:01)
[2025-06-28] MEDS ORDERED: Mineral Oil/White Petrolatum Crm 113 GM Jar TOP PRN (12:01)
[2025-06-28] MEDS ORDERED: Carboxymethylcellulose Sodium 0.5% Ophth Soln 15 ML Bottle EYEBOTH PRN (12:27)
[2025-06-28] MEDS: Lactated Ringers 1,000 ML IV SCH (13:02)
[2025-06-28 19:50] LABS: BASOPHILS ABSOLUTE AUTO 0.0 x10-3/uL (0.0-0.3); BASOPHILS PERCENT AUTO 0.7 % (0.3-3.8); EOSINOPHILS ABSOLUTE AUTO 0.2 x10-3/uL (0.0-0.6); EOSINOPHILS PERCENT AUTO 2.9 % (0.1-6.8); LYMPHOCYTES ABSOLUTE AUTO 1.7 x10-3/uL (0.5-4.5); LYMPHOCYTES PERCENT AUTO 23.5 % (15.8-45.3); MEAN PLATELET VOLUME 9.4 fL (6.7-11.0); MONOCYTES ABSOLUTE AUTO 1.1 x10-3/uL (0.0-1.2); MONOCYTES PERCENT AUTO 16.0 % (5.5-15.2); NEUTROPHILS ABSOLUTE AUTO 4.1 x10-3/uL (1.7-6.9); NEUTROPHILS PERCENT AUTO 56.9 % (40.3-71.8); PLATELET COUNT,PLT 236 x10(3)uL (117-477); RED BLOOD CELL COUNT 3.85 x10(6)uL (3.90-5.90); RED CELL DISTRIBUTION WIDTH 15.3 % (12.4-15.0); WHITE BLOOD CELL COUNT,WBC 7.1 x10-3/uL (3.2-10.1)
[2025-06-28] MEDS: Sennosides/Docusate Sodium 50-8.6 MG Tab PO SCH (20:24)
[2025-06-28] MEDS: Menthol 10%/Methyl Salicylate 30% 85 GM Tube TOP SCH (20:25)
[2025-06-28] MEDS: Fluticasone NASAL Spray 16 GM Bottle NASBOTH SCH (20:25)
[2025-06-29 07:01] LABS: A/G RATIO 0.8; ALANINE AMINOTRANSFERASE,ALT 20 U/L (12-36); ASPARTATE AMNIOTRANSFERASE,AST 14 IU/L (5-25); BILIRUBIN TOTAL 0.4 mg/dL (0.1-1.3); BLOOD UREA NITROGEN,BUN 22 mg/dL (7-18); CARBON DIOXIDE,CO2 23 mmol/L (21-32); CHLORIDE,CL 110 mmol/L (100-110); CREATININE 1.5 mg/dL (0.70-1.30); EST CRCL DRUG DOSING (CG) 38.53 mL/min; ESTIMATED GFR 46 mL/min (>60); GLUCOSE RANDOM 108 mg/dL (80-116); POTASSIUM,K 4.3 mmol/L (3.5-5.3); PROTEIN TOTAL,TP 6.7 g/dL (6.0-8.0); SODIUM,NA 143 mmol/L (135-145)
[2025-06-29] MEDS: Vitamin B Complex with Vitamin C Tab PO SCH (09:35)
[2025-06-29] MEDS: Magnesium Sulfate 2 GM/50 mL 2 GM in Premix Bag 1 BAG IV ONE (10:15)
[2025-06-29 13:29] LABS: GLUCOSE,URINE NORMAL (NORMAL); OCCULT BLOOD,URINE NEGATIVE (NEGATIVE)
[2025-06-29 13:37] LABS: APPEARANCE,URINE CLEAR (CLEAR); SQUAMOUS EPITHELIAL CELLS,UR FEW (NS,R,O)
[2025-06-29] MEDS: Heparin Sodium 5,000 Units/ML Vial SUBCUT SCH (16:09)
[2025-06-29] MEDS: Iopamidol 755 Mg/ML 100 ML Bottle IV SCH (17:58)
[2025-06-30 06:19] LABS: MEAN PLATELET VOLUME 9.6 fL (6.7-11.0); PLATELET COUNT,PLT 222 x10(3)uL (117-477); RED BLOOD CELL COUNT 4.29 x10(6)uL (3.90-5.90); RED CELL DISTRIBUTION WIDTH 15.2 % (12.4-15.0); WHITE BLOOD CELL COUNT,WBC 6.7 x10-3/uL (3.2-10.1)
[2025-06-30 06:23] LABS: BLOOD UREA NITROGEN,BUN 20 mg/dL (7-18); CARBON DIOXIDE,CO2 27 mmol/L (21-32); CHLORIDE,CL 110 mmol/L (100-110); CREATININE 1.2 mg/dL (0.70-1.30); EST CRCL DRUG DOSING (CG) 48.16 mL/min; ESTIMATED GFR 60 mL/min (>60); GLUCOSE RANDOM 105 mg/dL (80-116); POTASSIUM,K 4.2 mmol/L (3.5-5.3); SODIUM,NA 145 mmol/L (135-145)
[2025-06-30 06:34] LABS: BASOPHILS PERCENT MAN 1 % (0-2); EOSINOPHILS PERCENT MAN 1 % (0-5); LYMPHOCYTES PERCENT MAN 26 % (13-37); MONOCYTES PERCENT MAN 11 % (4-12); SEG NEUTROPHILS PERCENT MAN 61 % (46-82)
[2025-06-30] MEDS: metroNIDAZOLE/Normal Saline 500 MG in Premix Bag 1 BAG IV SCH (12:37)
[2025-06-30] MEDS: Sodium Chloride 0.9% 10 ML Syringe FLUSH PRN (20:08)
[2025-07-01 06:52] LABS: MEAN PLATELET VOLUME 9.4 fL (6.7-11.0); PLATELET COUNT,PLT 216 x10(3)uL (117-477); RED BLOOD CELL COUNT 3.98 x10(6)uL (3.90-5.90); RED CELL DISTRIBUTION WIDTH 15.6 % (12.4-15.0); WHITE BLOOD CELL COUNT,WBC 6.8 x10-3/uL (3.2-10.1)
[2025-07-01 06:58] LABS: BASOPHILS PERCENT MAN 1 % (0-2); EOSINOPHILS PERCENT MAN 3 % (0-5); LYMPHOCYTES PERCENT MAN 29 % (13-37); MONOCYTES PERCENT MAN 11 % (4-12); SEG NEUTROPHILS PERCENT MAN 56 % (46-82)
[2025-07-01 06:59] LABS: BLOOD UREA NITROGEN,BUN 20 mg/dL (7-18); CARBON DIOXIDE,CO2 26 mmol/L (21-32); CHLORIDE,CL 110 mmol/L (100-110); CREATININE 1.3 mg/dL (0.70-1.30); EST CRCL DRUG DOSING (CG) 44.46 mL/min; ESTIMATED GFR 55 mL/min (>60); GLUCOSE RANDOM 110 mg/dL (80-116); POTASSIUM,K 4.0 mmol/L (3.5-5.3); SODIUM,NA 144 mmol/L (135-145)
[2025-07-01 14:39] LABS: INFLUENZA A NAA NEGATIVE (NEGATIVE); INFLUENZA B NAA NEGATIVE (NEGATIVE); RESPIRATORY SYNCYTIAL VIR NAA NEGATIVE (NEGATIVE)
[2025-07-01 14:41] LABS: CORONAVIRUS COVID-19 NAA NEGATIVE (NEGATIVE)
[2025-07-02 06:23] LABS: BASOPHILS ABSOLUTE AUTO 0.1 x10-3/uL (0.0-0.3); BASOPHILS PERCENT AUTO 1.0 % (0.3-3.8); EOSINOPHILS ABSOLUTE AUTO 0.2 x10-3/uL (0.0-0.6); EOSINOPHILS PERCENT AUTO 3.1 % (0.1-6.8); LYMPHOCYTES ABSOLUTE AUTO 2.1 x10-3/uL (0.5-4.5); LYMPHOCYTES PERCENT AUTO 28.5 % (15.8-45.3); MEAN PLATELET VOLUME 9.5 fL (6.7-11.0); MONOCYTES ABSOLUTE AUTO 1.3 x10-3/uL (0.0-1.2); MONOCYTES PERCENT AUTO 17.4 % (5.5-15.2); NEUTROPHILS ABSOLUTE AUTO 3.6 x10-3/uL (1.7-6.9); NEUTROPHILS PERCENT AUTO 50.0 % (40.3-71.8); PLATELET COUNT,PLT 201 x10(3)uL (117-477); RED BLOOD CELL COUNT 4.01 x10(6)uL (3.90-5.90); RED CELL DISTRIBUTION WIDTH 15.5 % (12.4-15.0); WHITE BLOOD CELL COUNT,WBC 7.3 x10-3/uL (3.2-10.1)
[2025-07-02 06:26] LABS: BLOOD UREA NITROGEN,BUN 19 mg/dL (7-18); CARBON DIOXIDE,CO2 25 mmol/L (21-32); CHLORIDE,CL 111 mmol/L (100-110); CREATININE 1.3 mg/dL (0.70-1.30); EST CRCL DRUG DOSING (CG) 44.46 mL/min; ESTIMATED GFR 55 mL/min (>60); GLUCOSE RANDOM 111 mg/dL (80-116); POTASSIUM,K 4.0 mmol/L (3.5-5.3); SODIUM,NA 146 mmol/L (135-145)
[2025-07-03 15:01] LABS: STREPTOCOCCUS PNEUMONIAE AG,UR Negative (Negative)
[2025-07-03 22:25] LABS: LEGIONELLA PNEUMOPHILA AG,URN Negative (Negative)
== END 2025-07-02 13:10 | DRG 177 ==
LOC: FB.ED 10:10 → FB.MS 11:25 → OBSVTOIN 06-29 12:28
PROVIDERS: ADMIT Family Medicine; ATTEND Internal Medicine
DX: R41.82 Altered mental status, unspecified (principal); I11.0 Hypertensive heart disease with heart failure; I50.9 Heart failure, unspecified; J69.0 Pneumonitis due to inhalation of food and vomit; J96.21 Acute and chronic respiratory failure with hypoxia; N39.0 Urinary tract infection, site not specified; I13.0 Hypertensive heart and chronic kidney disease with heart failure and stage 1 through stage 4 chronic kidney disease, or unspecified chronic kidney disease; F05 Delirium due to known physiological condition; F33.1 Major depressive disorder, recurrent, moderate; I50.22 Chronic systolic (congestive) heart failure; I25.10 Atherosclerotic heart disease of native coronary artery without angina pectoris; N18.31 Chronic kidney disease, stage 3a; E86.0 Dehydration; T17.908A Unspecified foreign body in respiratory tract, part unspecified causing other injury, initial encounter; E83.42 Hypomagnesemia; H54.7 Unspecified visual loss; E78.00 Pure hypercholesterolemia, unspecified; Z96.649 Presence of unspecified artificial hip joint; D63.1 Anemia in chronic kidney disease; G20.A1 Parkinson's disease without dyskinesia, without mention of fluctuations; Z79.2 Long term (current) use of antibiotics; Z79.899 Other long term (current) drug therapy; Z79.1 Long term (current) use of non-steroidal anti-inflammatories (NSAID); Z79.82 Long term (current) use of aspirin; Z79.891 Long term (current) use of opiate analgesic; Z88.0 Allergy status to penicillin; Z88.7 Allergy status to serum and vaccine; Z88.8 Allergy status to other drugs, medicaments and biological substances; Z91.018 Allergy to other foods
CPT/HCPCS: 36415 ×2; 71045; 80053 ×2; 81001; 83605; 83735; 83880; 84484 ×2; 85025 ×2; 86140; 87040; 87086; 93005; 93010; 94150; 96361 ×3; 96365; 96366; 99285 ×2; A9270 ×13; G0378 ×3; J3475; J7030; J7120 ×3; 71275; 80048; 85379; 87070; 87205; 87449; 87637; 87899; 96360; 99223; 99232; 99238; J0696; J1271; J1644; J1836; Q9967